=== PATIENT | male | born 1955 | race Caucasian/White ===

== ENCOUNTER 2017-09-26 19:25 | Observation (INO) | payer OTHER, MEDICARE ==
[2017-09-26] MEDS ORDERED: AMIODARONE 150MG/3ML INJ (J0282) As Ordered ×2 (19:44→19:47)
[2017-09-26] MEDS ORDERED: MIDAZOLAM INJ 5 MG/ML VIAL (J2250) As Ordered ×2 (19:50→19:54)
[2017-09-26] MEDS: AMIODARONE 150MG/3ML INJ (J0282) IVP ×2 (19:52→19:55)
[2017-09-26] MEDS ORDERED: DIGOXIN INJ 0.5 MG/2 ML AMP (J1160) As Ordered (19:57)
[2017-09-26] MEDS: MIDAZOLAM INJ 2 MG/2 ML VIAL (J2250) IV ×2 (19:59→20:00)
[2017-09-26] MEDS: SYMBICORT 160/4.5MCG INHALER 6GM INH (20:00)
[2017-09-26] MEDS ORDERED: AMIODARONE HCL 150 MG in APPROPRIATE DILUENT 1 EA IV (20:28)
[2017-09-26 20:38] LABS: BASO # 0.1 10^3/uL (0.0-0.2); BASO % 0.6 % (0.0-1.0); EOS # 0.1 10^3/uL (0.0-0.50); EOS % 1.3 % (0.0-3.0); HEMATOCRIT 48.4 % (42.0-52.0); HEMOGLOBIN 16.1 g/dl (13.5-17.5); IMMATURE GRANULOCYTE % 0.3 % (0-3.0); LYMPH # 2.1 10^3/uL (1.5-4.5); MEAN CORPUSCULAR HGB CONC 33.3 g/dl (32.0-36.5); MEAN CORPUSCULAR VOLUME 84.2 fl (80.0-96.0); MONO % 10.7 % (0.0-5.0); NEUTROPHILS # 6.1 10^3/uL (1.8-7.7); NEUTROPHILS % 65.1 % (36.0-66.0); PLATELET COUNT, AUTOMATED 280 10^3/uL (150-450); RED BLOOD COUNT 5.75 10^6/uL (4.30-6.10); RED CELL DISTRIBUTION WIDTH 18.9 % (11.5-14.5); WHITE BLOOD COUNT 9.3 10^3/uL (4.0-10.0)
[2017-09-26 20:41] LABS: INR 0.96; PROTHROMBIN TIME 12.9 SECONDS (12.4-14.5)
[2017-09-26 20:42] LABS: PARTIAL THROMBOPLASTIN TIME 32.6 SECONDS (26.8-37.9)
[2017-09-26 20:51] LABS: ANION GAP 10 MEQ/L (8-16); BLOOD UREA NITROGEN 18 MG/DL (7-18); CALCIUM LEVEL 9.4 MG/DL (8.8-10.2); CARBON DIOXIDE LEVEL 23 MEQ/L (21-32); CHLORIDE LEVEL 109 MEQ/L (98-107); CK-MB VALUE MASS 2.7 NG/ML (<3.6); CPK CREATINE PHOSPHOKINASE 155 U/L (39-308); CREATININE FOR GFR 1.88 MG/DL (0.70-1.30); GLOMERULAR FILTRATION RATE 38.7 (>49); GLUCOSE, FASTING 196 MG/DL (70-100); MAGNESIUM LEVEL 1.7 MG/DL (1.8-2.4); MB/CK RELATIVE INDEX 1.74 (< OR =4); POTASSIUM SERUM 4.3 MEQ/L (3.5-5.1); SODIUM LEVEL 142 MEQ/L (136-145); TROPONIN I < 0.02 NG/ML (< 0.10)
[2017-09-26] MEDS: HumaLOG INSULIN (NovoLOG) PER UNIT SC (21:00)
[2017-09-26] MEDS: ASPIRIN 325 MG TAB PO (21:01)
[2017-09-26] MEDS: METOPROLOL TART 25 MG TABLET PO (21:01)
[2017-09-26] MEDS ORDERED: IPRATROPIUM 0.5MG/ALBUTEROL 2.5MG INH SOL UD 3ML (DUONEB)(J7620) NEB (22:15)
[2017-09-26] MEDS ORDERED: EUCERIN 120GM CREAM TOP (22:15)
[2017-09-26] MEDS ORDERED: GLUCAGON FOR INJ 1 MG VIAL (J1610) SC (22:30)
[2017-09-26] MEDS ORDERED: ACETAMINOPHEN TAB 650MG DOSE (2X325MG) PO (22:30)
[2017-09-26] MEDS ORDERED: DEXTROSE 50% 50 ML SYRINGE IV (22:30)
[2017-09-27] MEDS: metFORMIN (GLUCOPHAGE) 1000 MG TABLET PO ×2 (01:11→08:53)
[2017-09-27] MEDS: APIXABAN 5 MG TAB (ELIQUIS) PO ×3 (01:11→20:24)
[2017-09-27 01:15] LABS: BEDSIDE GLUCOSE 131 MG/DL (80-115)
[2017-09-27 05:42] LABS: TROPONIN I 0.66 NG/ML (< 0.10)
[2017-09-27] MEDS: ASPIRIN 325 MG TAB PO (07:00)
[2017-09-27 07:05] LABS: ANION GAP 9 MEQ/L (8-16); BLOOD UREA NITROGEN 21 MG/DL (7-18); CALCIUM LEVEL 9.1 MG/DL (8.8-10.2); CARBON DIOXIDE LEVEL 25 MEQ/L (21-32); CHLORIDE LEVEL 112 MEQ/L (98-107); CREATININE FOR GFR 1.65 MG/DL (0.70-1.30); GLOMERULAR FILTRATION RATE 44.9 (>49); GLUCOSE, FASTING 100 MG/DL (70-100); MAGNESIUM LEVEL 1.8 MG/DL (1.8-2.4); POTASSIUM SERUM 4.1 MEQ/L (3.5-5.1); SODIUM LEVEL 146 MEQ/L (136-145)
[2017-09-27] MEDS: HumaLOG INSULIN (NovoLOG) PER UNIT SC ×4 (07:30→20:24)
[2017-09-27] MEDS: SYMBICORT 160/4.5MCG INHALER 6GM INH ×2 (07:36→20:41)
[2017-09-27] MEDS ORDERED: PILL CRUSHER/CUTTER 1 EACH XX (08:30)
[2017-09-27] MEDS: METOPROLOL SUCC (TopROL XL) 50MG **XL** TAB PO (08:52)
[2017-09-27] MEDS: MAGNESIUM OXIDE 400 MG TAB (MAG-OX) PO (08:52)
[2017-09-27] MEDS: FERROUS SULFATE 325MG TAB PO (08:52)
[2017-09-27] MEDS: LISINOPRIL 40 MG TAB PO (08:52)
[2017-09-27] MEDS: glipiZIDE (GLUCOTROL) 5 MG TAB PO (08:53)
[2017-09-27] MEDS: LEVEMIR (INSULIN DETEMIR) 1 UNITS/0.01ML SC (08:54)
[2017-09-27] MEDS ORDERED: METOPROLOL SUCC (TopROL XL) 100MG *XL* TAB PO (09:00)
[2017-09-27] MEDS ORDERED: DOFETILIDE 125 MCG PO (09:00)
[2017-09-27] MEDS: OMEPRAZOLE 20 MG CAP PO (09:00)
[2017-09-27] MEDS: SIMVASTATIN 40 MG TAB PO (09:00)
[2017-09-27 11:57] LABS: BEDSIDE GLUCOSE 92 MG/DL (80-115)
[2017-09-27 13:16] LABS: CK-MB VALUE MASS 7.1 NG/ML (<3.6); CPK CREATINE PHOSPHOKINASE 156 U/L (39-308); MB/CK RELATIVE INDEX 4.55 (< OR =4); TROPONIN I 0.57 NG/ML (< 0.10)
[2017-09-27] MEDS: GLUCOSE 4 GM CHEW TABLET PO (14:16)
[2017-09-27 15:32] LABS: BEDSIDE GLUCOSE 47 MG/DL (80-115)
[2017-09-27 15:32] LABS: BEDSIDE GLUCOSE 79 MG/DL (80-115)
[2017-09-27 15:32] LABS: BEDSIDE GLUCOSE 89 MG/DL (80-115)
[2017-09-27 17:27] LABS: BEDSIDE GLUCOSE 81 MG/DL (80-115)
[2017-09-27 20:29] LABS: BEDSIDE GLUCOSE 141 MG/DL (80-115)
[2017-09-27 20:37] LABS: TROPONIN I 0.49 NG/ML (< 0.10)
[2017-09-28 04:56] LABS: HEMATOCRIT 43.2 % (42.0-52.0); MEAN CORPUSCULAR HEMOGLOBIN 27.3 pg (27.0-33.0); MEAN CORPUSCULAR HGB CONC 31.9 g/dl (32.0-36.5); MEAN CORPUSCULAR VOLUME 85.4 fl (80.0-96.0); PLATELET COUNT, AUTOMATED 194 10^3/uL (150-450); RED BLOOD COUNT 5.06 10^6/uL (4.30-6.10); RED CELL DISTRIBUTION WIDTH 18.2 % (11.5-14.5); WHITE BLOOD COUNT 5.2 10^3/uL (4.0-10.0)
[2017-09-28 05:04] LABS: HEMOGLOBIN 13.8 g/dl (13.5-17.5)
[2017-09-28 05:17] LABS: ANION GAP 6 MEQ/L (8-16); BLOOD UREA NITROGEN 21 MG/DL (7-18); CALCIUM LEVEL 9.5 MG/DL (8.8-10.2); CARBON DIOXIDE LEVEL 27 MEQ/L (21-32); CHLORIDE LEVEL 106 MEQ/L (98-107); CPK CREATINE PHOSPHOKINASE 127 U/L (39-308); CREATININE FOR GFR 1.48 MG/DL (0.70-1.30); GLOMERULAR FILTRATION RATE 50.9 (>49); GLUCOSE, FASTING 260 MG/DL (70-100); MAGNESIUM LEVEL 1.5 MG/DL (1.8-2.4); MB/CK RELATIVE INDEX 3.93 (< OR =4); POTASSIUM SERUM 4.3 MEQ/L (3.5-5.1); SODIUM LEVEL 139 MEQ/L (136-145); TROPONIN I 0.53 NG/ML (< 0.10)
[2017-09-28] MEDS: HumaLOG INSULIN (NovoLOG) PER UNIT SC ×2 (07:34→12:02)
[2017-09-28] MEDS: SYMBICORT 160/4.5MCG INHALER 6GM INH (07:40)
[2017-09-28] MEDS: LISINOPRIL 40 MG TAB PO (10:02)
[2017-09-28] MEDS: MAGNESIUM OXIDE 400 MG TAB (MAG-OX) PO (10:02)
[2017-09-28] MEDS: OMEPRAZOLE 20 MG CAP PO (10:02)
[2017-09-28] MEDS: APIXABAN 5 MG TAB (ELIQUIS) PO (10:03)
[2017-09-28] MEDS: SIMVASTATIN 40 MG TAB PO (10:03)
[2017-09-28] MEDS: METOPROLOL SUCC (TopROL XL) 50MG **XL** TAB PO (10:03)
[2017-09-28] MEDS: FERROUS SULFATE 325MG TAB PO (10:03)
[2017-09-28] MEDS: LEVEMIR (INSULIN DETEMIR) 1 UNITS/0.01ML SC (10:05)
[2017-09-28] MEDS: MAG SULF 1GM/100ML (MAG RUN) 1 GM in APPROPRIATE DILUENT 1 EA IV ×2 (10:06→12:46)
[2017-09-28 12:08] LABS: BEDSIDE GLUCOSE 157 MG/DL (80-115)
== END 2017-09-28 15:50 | disposition home or self-care (01) ==
LOC: M PCU 09-27 00:41 → M ED 19:25 → M ED INP 22:18
DX: I47.1 Supraventricular tachycardia (principal); I47.2 Ventricular tachycardia; I25.10 Atherosclerotic heart disease of native coronary artery without angina pectoris; E11.9 Type 2 diabetes mellitus without complications; I10 Essential (primary) hypertension; N17.9 Acute kidney failure, unspecified; I48.91 Unspecified atrial fibrillation; I25.2 Old myocardial infarction; K21.9 Gastro-esophageal reflux disease without esophagitis; Z79.51 Long term (current) use of inhaled steroids; Z79.02 Long term (current) use of antithrombotics/antiplatelets; Z79.4 Long term (current) use of insulin; Z79.899 Other long term (current) drug therapy; Z87.891 Personal history of nicotine dependence; Z88.0 Allergy status to penicillin; Z88.8 Allergy status to other drugs, medicaments and biological substances
CPT/HCPCS: J3475

== ENCOUNTER → 2017-12-03 | Outpatient (CLI) | payer OTHER | LOC: M SLEEP 18:38 | DX: G47.30 Sleep apnea, unspecified (principal) | CPT/HCPCS: 95811 ==

== ENCOUNTER → 2023-07-18 | Outpatient (REF) ==
[~2023-07-18] MED LIST: ELIQ5TAB PO; EUCECRE3 TOP; FERR324T2 PO; GLIP10TA6 PO; INSULADS INJ; LISI40TA4 PO; MAGN400C3 PO; MAGN400T33 PO; METF10004 PO; METO1TAB33 PO; OMEP1CAP73 PO; SIMV20TA22 PO; SYMB16INH INH; VENTAER INH; ZOCO80TA PO; [UNRECOGNIZED DRUG - CODE] PO; insulin SUBQ
== END ==
LOC: M PLAIMG 10:20
PROVIDERS: ATTEND Internal Medicine
DX: R06.02 Shortness of breath (principal)

== ENCOUNTER 2023-09-06 08:04 | Day surgery (SDC) | payer OTHER ==
[~2023-09-06] VITALS: Ht 175.3 cm; Wt 97.3 kg
[~2023-09-06 08:04] MED LIST changes: +ATRO0.063 INH; +CHOL25TA8 PO; +KETO5DRO33 OD; +REFR0.5D8 OU; +RIBO100T3 PO; +ROSU40TA4 PO; +SEMA2PEN SQ; +[UNRECOGNIZED DRUG - CODE] PO
[2023-09-06] MEDS ORDERED: propofoL 200 MG/20 ML VIAL As Ordered ONE (08:46)
[2023-09-06] MEDS ORDERED: LIDOCAINE 2% 100MG/5ML SDV (FOR ANES.) As Ordered ONE (08:46)
[2023-09-06] MEDS: NS 1,000 ML IV ONE (08:49)
[2023-09-06] MEDS ORDERED: fentaNYL 100 MCG/2 ML INJECTION As Ordered ONE (10:08)
[2023-09-06 10:40] VITALS: TEMP 97.5
[2023-09-06 10:55] VITALS: BP 107/63; O2SAT 94
== END 2023-09-06 11:07 | disposition home or self-care (01) ==
LOC: M OPP 08:04
PROVIDERS: ATTEND Surgery
DX: Z86.010 Personal history of colon polyps (principal); D12.6 Benign neoplasm of colon, unspecified; I25.10 Atherosclerotic heart disease of native coronary artery without angina pectoris; E11.9 Type 2 diabetes mellitus without complications; G57.30 Lesion of lateral popliteal nerve, unspecified lower limb; Z99.89 Dependence on other enabling machines and devices; Z86.74 Personal history of sudden cardiac arrest; Z87.891 Personal history of nicotine dependence; Z79.01 Long term (current) use of anticoagulants; Z79.02 Long term (current) use of antithrombotics/antiplatelets; Z79.4 Long term (current) use of insulin; Z79.51 Long term (current) use of inhaled steroids; Z79.84 Long term (current) use of oral hypoglycemic drugs; Z79.899 Other long term (current) drug therapy; Z88.0 Allergy status to penicillin; Z88.1 Allergy status to other antibiotic agents; Z88.8 Allergy status to other drugs, medicaments and biological substances
CPT/HCPCS: 45380; 88305; J3010

== ENCOUNTER → 2023-09-11 | Outpatient (REF) | payer OTHER ==
[2023-09-11 18:21] LABS: TOTAL PROTEIN,RANDOM URINE 37.1 MG/DL (0.0-14.0)
[2023-09-11 18:26] LABS: CREATININE,RANDOM URINE 120.1 MG/DL
== END ==
LOC: M LAB REF 17:09
PROVIDERS: ATTEND Internal Medicine Nephrology
DX: R80.9 Proteinuria, unspecified (principal)

== ENCOUNTER → 2023-11-20 | Outpatient (REF) | payer OTHER ==
[~2023-11-20] MED LIST changes: -ROSU40TA4 PO; +ROSU40TA63 PO
== END ==
LOC: M LABSMT 16:00
PROVIDERS: ATTEND Urology
DX: R33.9 Retention of urine, unspecified (principal)

== ENCOUNTER 2024-03-18 08:26 | Day surgery (SDC) | payer OTHER ==
[~2024-03-18] VITALS: Ht 172.7 cm; Wt 98.7 kg
[~2024-03-18 08:26] MED LIST changes: +GLIP10TA15 PO; -GLIP10TA6 PO; +PHENYLEPHRINE 10% OPHTH SOL 5ML OD PRN; -ROSU40TA63 PO; +ROSU40TA81 PO; +[UNRECOGNIZED DRUG - CODE] PO; -[UNRECOGNIZED DRUG - CODE] PO; +fentaNYL 100 MCG/2 ML INJECTION As Ordered ONE
[2024-03-18] MEDS: ATROPINE SULFATE 1% OPHTH SOLN 2ML BTL OD SCH (10:06)
[2024-03-18] MEDS: LIDOCAINE 3.5 % 1ML OPHTH TOPICAL GEL OU ONE (10:06)
[2024-03-18] MEDS: TROPICAMIDE 1% OPHTH SOLN 15ML OD SCH (10:07)
[2024-03-18] MEDS: PHENYLEPHRINE 2.5% OPHTH SOL 2ML OD SCH (10:07)
[2024-03-18] MEDS: OFLOXACIN 0.3 % (OCUFLOX) OPTH SOL 5ML OD ONE (10:07)
[2024-03-18] MEDS: LIDOCAINE 1% SDV 5ML VIAL As Ordered ONE (10:34)
[2024-03-18] MEDS: CEFUROXIME 1MG/0.1ML INTRACAMERAL INJ As Ordered ONE (10:34)
[2024-03-18] MEDS: BSS IRRIG/VANCO(10MG)/TOBRA(5MG)/EPINEPH(1:1000-0.5CC)500ML BAG-ORONLY As Ordered ONE (10:34)
[2024-03-18 10:44] VITALS: BP 129/62; TEMP 97.6; O2SAT 99
== END 2024-03-18 10:56 | disposition home or self-care (01) ==
LOC: M SDC 08:26
PROVIDERS: ATTEND Ophthalmology
DX: H25.11 Age-related nuclear cataract, right eye (principal); I25.10 Atherosclerotic heart disease of native coronary artery without angina pectoris; I25.2 Old myocardial infarction; G47.30 Sleep apnea, unspecified; Z85.528 Personal history of other malignant neoplasm of kidney; Z90.5 Acquired absence of kidney; Z79.899 Other long term (current) drug therapy; Z88.8 Allergy status to other drugs, medicaments and biological substances; Z88.1 Allergy status to other antibiotic agents; Z88.0 Allergy status to penicillin
CPT/HCPCS: 66984; J0697; J3010; V2632

== ENCOUNTER 2024-04-14 06:58 | Day surgery (SDC) | payer OTHER ==
[2024-03-04] MEDS: LIDOCAINE 1% SDV 5ML VIAL As Ordered ONE (10:30)
[2024-03-04] MEDS: MOXIFLOXACIN 0.6MG/0.4ML INTRAOCULAR SYRINGE As Ordered ONE (10:40)
[~2024-04-14] VITALS: Ht 175.3 cm; Wt 98.3 kg
[~2024-04-14 06:58] MED LIST changes: -INSULADS INJ; +INSULADS SC; +JARD1TAB3 PO; -PHENYLEPHRINE 10% OPHTH SOL 5ML OD PRN; +PHENYLEPHRINE 10% OPHTH SOL 5ML OS PRN
[2024-04-14] MEDS: OFLOXACIN 0.3 % (OCUFLOX) OPTH SOL 5ML OS ONE (09:00)
[2024-04-14] MEDS: LIDOCAINE 3.5 % 1ML OPHTH TOPICAL GEL OU ONE (09:00)
[2024-04-14] MEDS: TROPICAMIDE 1% OPHTH SOLN 15ML OS SCH (09:00)
[2024-04-14] MEDS: PHENYLEPHRINE 2.5% OPHTH SOL 2ML OS SCH (09:00)
[2024-04-14] MEDS: ATROPINE SULFATE 1% OPHTH SOLN 2ML BTL OS SCH (09:00)
[2024-04-14] MEDS ORDERED: MIDAZOLAM INJ 2MG/2ML VIAL As Ordered ONE (09:31)
[2024-04-14] MEDS: CEFUROXIME 1MG/0.1ML INTRACAMERAL INJ As Ordered ONE (10:30)
[2024-04-14] MEDS: BSS IRRIG/VANCO(10MG)/TOBRA(5MG)/EPINEPH(1:1000-0.5CC)500ML BAG-ORONLY As Ordered ONE (10:30)
[2024-04-14 10:45] VITALS: BP 128/68; TEMP 98.2; O2SAT 95
== END 2024-04-14 11:54 | disposition home or self-care (01) ==
LOC: M SDC 06:58
PROVIDERS: ATTEND Ophthalmology
DX: H25.9 Unspecified age-related cataract (principal); I48.91 Unspecified atrial fibrillation; I25.10 Atherosclerotic heart disease of native coronary artery without angina pectoris; I25.2 Old myocardial infarction; E11.9 Type 2 diabetes mellitus without complications; G47.30 Sleep apnea, unspecified; Z85.528 Personal history of other malignant neoplasm of kidney; Z90.5 Acquired absence of kidney; Z98.41 Cataract extraction status, right eye
CPT/HCPCS: 66984; J0697; J2250; J3010; V2632

== ENCOUNTER → 2024-08-28 | Outpatient (REF) | payer OTHER ==
[~2024-08-28] MED LIST changes: -PHENYLEPHRINE 10% OPHTH SOL 5ML OS PRN; -fentaNYL 100 MCG/2 ML INJECTION As Ordered ONE
[2024-08-28 18:34] LABS: TOTAL PROTEIN,RANDOM URINE 26.6 MG/DL (0.0-14.0)
[2024-08-28 18:39] LABS: CREATININE,RANDOM URINE 101.7 MG/DL
== END ==
LOC: M LAB REF 16:44
PROVIDERS: ATTEND Internal Medicine Nephrology
DX: R80.9 Proteinuria, unspecified (principal)

== ENCOUNTER → 2024-09-30 | Outpatient (CLI) | payer OTHER | LOC: M RAD 10:22 | PROVIDERS: ATTEND Physician Assistant | DX: N13.30 Unspecified hydronephrosis (principal) ==

== ENCOUNTER → 2025-01-25 | Outpatient (CLI) | payer MEDICARE, OTHER ==
[~2025-01-25] MED LIST changes: +LISI40TA10 PO; -LISI40TA4 PO
== END ==
LOC: M EKG 08:05
PROVIDERS: ATTEND Physician Assistant
DX: I48.0 Paroxysmal atrial fibrillation (principal)